=== PATIENT | female | born 1940 | race Caucasian/White ===

== ENCOUNTER → 2018-02-04 | Outpatient (CLI) | payer MEDICARE, OTHER ==
[~2018-02-04] MED LIST: ALPRAZOLAM0.25 MG PO; AMBIEN10 MG PO; BYSTOLIC10 MG PO; CRESTOR20 MG PO; CYMBALTA30 MG PO; PREMARIN0.3 MG PO; ULTRAM ER300 MG PO
--- NOTE | 2018-02-05 08:42 | Diagnostic Imaging Report ---
TECHNIQUE: Magnetic resonance imaging of the LEFT ANKLE was performed WITHOUT injected contrast. Motion artifact partially limits sensitivity and specificity of the exam. HISTORY: Pain and swelling, stepped long, 2 weeks ago COMPARISON: None available. FINDINGS: LIGAMENTS: Medial Complex: Intact Lateral Complex: Intact, including the tibiofibular ligaments. TENDONS: Medial: Intact Lateral: Intact Anterior: Intact Achilles: Intact BONES: No focal or infiltrative bone marrow replacing abnormality. No acute fracture or osteonecrosis. JOINTS: Cartilage: No focal defect involving the tibiotalar joint. Other: Fluid within the joints is within physiologic limits. SOFT TISSUES: Trace fluid in the retrocalcaneal bursa. A lobulated 0.3 cm (AP) x 0.6 cm (ML) x 0.8 cm (CC) fluid intensity focus at the distal tibiofibular syndesmosis (series 5 image 21). IMPRESSION: 1. No acute fracture or ligamentous/tendon tear. 2. Small ganglion cyst of the distal tibiofibular syndesmosis, likely the sequela of a remote injury. 3. Trace retrocalcaneal bursitis. Signed by: Dr. Waldemar Reddy D.O., M.M.M. on 02/05/2018 8:38 AM
== END ==
LOC: MRI 11:42
PROVIDERS: ATTEND Podiatrist Foot & Ankle Surgery
DX: M76.822 Posterior tibial tendinitis, left leg (principal)